=== PATIENT | male | born 1965 | race Hispanic/Latino ===

== ENCOUNTER 2017-07-23 08:32 | Emergency (ER) | payer BC, OTHER ==
[2017-07-23] MEDS ORDERED: Ibuprofen 800 MG TAB ONE (08:57)
[2017-07-23] MEDS ORDERED: Acetaminophen 500 MG TAB ONE (08:57)
[2017-07-23] MEDS ORDERED: Dexamethasone 4 mg/ml Vial ONE (08:57)
[2017-07-23 09:12] LABS: #Basophils 0.1 thou/uL (0.0-0.2); #Eosinphils 0.1 thou/uL (0.0-0.7); #Lymphocytes 1.7 thou/uL (1.20-3.40); #Monocytes 0.4 thou/uL (0.11-0.59); #Neutrophils 2.3 thou/uL (1.40-6.50); %Basophils 1.4 % (0.0-1.0); %Eosinophils 1.5 % (0.0-10.0); %Lymphocytes 36.9 % (21.0-51.0); %Monocytes 8.3 % (0.0-10.0); %Neutrophils 51.9 % (42.0-75.0); Hemoglobin 14.6 g/dL (14.0-18.0); Mean Corpuscular HGB CONC 35.1 g/dL (32.0-36.0); Mean Corpuscular Hemoglobin 32.4 pg (27.0-31.0); Mean Corpuscular Volume 92.2 fl (80.0-94.0); Mean Platelet Volume 9.5 fL (7.4-10.4); Platelet Count 163 thou/uL (130-400); RBC Distribution Width 11.2 % (11.5-14.5); Red Blood Cell (RBC) Count 4.51 mill/uL (4.70-6.10); White Blood Cell (WBC) Count 4.5 thou/uL (4.8-10.8)
[2017-07-23 09:24] LABS: Anion Gap 16 mmol/L (10-20); BUN (Urea Nitrogen) 8 mg/dL (8.4-25.7); Calc. Creatinine Clearance 0 mL/min (70-130); Calcium 9.7 mg/dL (7.8-10.44); Carbon Dioxide 20 mmol/L (22-29); Chloride 102 mmol/L (98-107); Estimated GFR-MDRD Greater than 90; Glucose 261 mg/dL (70-105); Potassium 4.2 mmol/L (3.5-5.1); Sodium 134 mmol/L (136-145)
--- NOTE | 2017-07-23 09:46 | RAD ---
2 VIEW CHEST: Date: 07/23/17 HISTORY: Cough and fever. FINDINGS: Lungs are clear. No infiltrate. Heart and mediastinum unremarkable. Osseous structures unremarkable. IMPRESSION: No acute findings. POS: [facility]
--- NOTE | 2017-07-23 10:27 | CT ---
POSTCONTRAST SOFT TISSUE NECK CT: Date: 07/23/17 HISTORY: Cough. Jaw swelling. COMPARISON: None. TECHNIQUE: Postcontrast soft tissue neck CT is performed in the axial plane. Reformatted images are submitted fo r interpretation. FINDINGS: Visualized brain parenchyma is unremarkable. Adequate aeration of the visualized sinuses and mastoid air cells. Th4ere is narrowing of the aerodigestive tract at the level of the posterior oral cavity. Adenoid ton sils are not enlarged. Mild nonspecific fullness of the palatine tonsils bilaterally. Limited evaluat ion of the oral cavity due to dental amalgam artifact. There is fullness of the lingual tonsils. Midl ine fatty raphe of the tongue is preserved. Epiglottis has a normal caliber. Pre-epiglottic fat is pr eserved. There is obliteration of the left piriform sinus. There is irregularity involving the left f alse vocal cord. The possibility of a mucosal based pathology is raised. Direct visualization for silvia plasm is recommended. Symmetric fatty replacement of both parotid glands. Symmetric attenuation of the sternocleidomastoid muscles. Thyroid gland is unremarkable. There is mild edema involving both submandibular glands. No evidence of a sialolith. There are scattered nonspecific bilateral soft tissue neck lymph nodes. Enlarged right Level II lymph node measures 1.2 x 1.6 cm. Enlarged left Level II lymph node measures 1.1 x 2.1 cm. Additional nonspecific bilateral soft tissue neck lymph nodes are noted. There are varying degrees of central canal stenosis and foraminal narrowing on the basis of degenerat chang change. Cervical spine vertebral body height is maintained. No fracture. Upper mediastinum and lung apices are unremarkable. IMPRESSION: 1. Mucosal abnormality involving the supraglottic larynx, predominantly on the left side. The possib ility of a mucosal based mass lesion is raised. Direct visualization is recommended. 2. Fullness of both lingual tonsils. 3. Bilateral enlarged Level II lymph nodes. 4. Edema involving both submandibular glands. POS: [facility]
[2017-07-23] MEDS ORDERED: ISOVUE-370 76%-LOCM 1 ML ONE (16:20)
== END 2017-07-23 11:21 | disposition home or self-care (01) ==
LOC: ERS 08:32
DX: R59.0 Localized enlarged lymph nodes (principal); E11.9 Type 2 diabetes mellitus without complications; E78.5 Hyperlipidemia, unspecified; I10 Essential (primary) hypertension; Z79.899 Other long term (current) drug therapy; Z79.4 Long term (current) use of insulin
CPT/HCPCS: 36415; 70491; 71046; 80048; 85025; 86735; 87804; J1100

== ENCOUNTER 2017-10-06 19:17 | Emergency (ER) | payer BC, OTHER ==
[2017-10-06] MEDS ORDERED: Acetaminophen 500 MG TAB ONE (19:28)
== END 2017-10-06 19:43 | disposition home or self-care (01) ==
LOC: ERS 19:17
DX: I10 Essential (primary) hypertension; Z79.899 Other long term (current) drug therapy; H60.92 Unspecified otitis externa, left ear; H66.92 Otitis media, unspecified, left ear; E78.5 Hyperlipidemia, unspecified; E11.9 Type 2 diabetes mellitus without complications
CPT/HCPCS: 99282

== ENCOUNTER 2018-12-03 16:52 | Emergency (ER) | payer BC ==
[2018-12-03] MEDS ORDERED: Ketorolac Tromethamine 30 MG/ML VIAL ONE (17:11)
== END 2018-12-03 17:35 | disposition home or self-care (01) ==
LOC: ERS 16:52
DX: S86.911A Strain of unspecified muscle(s) and tendon(s) at lower leg level, right leg, initial encounter (principal); E11.9 Type 2 diabetes mellitus without complications; E78.5 Hyperlipidemia, unspecified; I10 Essential (primary) hypertension; Z79.84 Long term (current) use of oral hypoglycemic drugs; Z79.899 Other long term (current) drug therapy; X50.9XXA Other and unspecified overexertion or strenuous movements or postures, initial encounter
CPT/HCPCS: 96372; J1885

== ENCOUNTER 2023-09-27 14:01 | Emergency (ER) | payer BC, SELFPAY ==
[2023-09-27] MEDS ORDERED: Ketorolac Tromethamine 30 MG (1 mL) VIAL ONE (14:53)
== END 2023-09-27 15:45 | disposition home or self-care (01) ==
LOC: ERS 14:01
DX: M54.31 Sciatica, right side (principal); G62.9 Polyneuropathy, unspecified; R20.0 Anesthesia of skin; E11.9 Type 2 diabetes mellitus without complications; I10 Essential (primary) hypertension; E78.00 Pure hypercholesterolemia, unspecified; Z79.84 Long term (current) use of oral hypoglycemic drugs; Z79.899 Other long term (current) drug therapy
CPT/HCPCS: 96372; 99282; J1885